=== PATIENT | female | born 1980 | race Caucasian/White ===

== ENCOUNTER → 2021-11-22 17:00 | Observation (INO) ==
[2021-11-22 16:01] LABS: Prothrombin Time 11.5 Seconds (9.4-12.1)
[2021-11-22 16:22] LABS: Basophils % 0.3 %; Eosinophils # 0.2 K/mcL (0.0-0.6); Eosinophils % 2.1 %; Hematocrit 34.9 % (35.3-44.9); Lymphocytes # 1.9 K/mcL (0.6-4.6); Lymphocytes % 19.6 %; Mean Corpuscular HGB Conc 34.4 g/dL (31.6-35.5); Mean Corpuscular Hemoglobin 31.5 pg (28.0-33.3); Mean Corpuscular Volume 91.6 fL (83.0-100.0); Mean Platelet Volume 10.2 fL (9.4-12.4); Monocytes # 0.6 K/mcL (0.0-1.3); Monocytes % 5.8 %; Neutrophils # 6.7 K/mcL (1.6-8.9); Platelet Count 190 K/mcL (140-400); Red Blood Count 3.81 M/mcL (3.82-4.97); Red Cell Distribution Width 13.5 % (11.5-14.5); Segmented Neutrophils % 71.2 %; White Blood Count 9.5 K/mcL (4.3-11.1)
[2021-11-22 16:33] LABS: Activated Partial Thrombo Time 26.9 Seconds (26.0-36.0)
== END | disposition home or self-care (01) ==
LOC: 1NENULAB
PROVIDERS: ADMIT Obstetrics & Gynecology; ATTEND Obstetrics & Gynecology

== ENCOUNTER 2022-02-01 10:15 | Inpatient (IN) ==
[~2022-02-01 10:15] MED LIST: CeFAZolin Syr 3,000MG/30 ML 3,000 MG/30 ML SYRINGE IVPB ONE; Famotidine 20 MG/2 ML VIAL IVP ONE; Metoclopramide 10 MG/2 ML VIAL IVP ONE; Oxytocin 30 UNIT/503 ML BAG IVC SCH; Ringers Solution, Lactated 1,000 ML IVC ONE; Ringers Solution, Lactated 1,000 ML IVC SCH
[2022-02-01] MEDS ORDERED: Promethazine 6.25 MG in Water for inj. (sterile) 20 ML IVPB PRN (10:42)
[2022-02-01] MEDS ORDERED: *HR* OxyCODONE Immed Rel 5 MG TABLET PO PRN ×2 (10:42→15:41)
[2022-02-01 11:39] LABS: Basophils # 0.1 K/mcL (0.0-0.2); Basophils % 0.4 %; Eosinophils # 0.1 K/mcL (0.0-0.6); Eosinophils % 1.1 %; Hematocrit 37.3 % (35.3-44.9); Hemoglobin 12.7 g/dL (11.5-15.4); Immature Granulocytes % 0.6 % (0-4); Lymphocytes # 2.1 K/mcL (0.6-4.6); Lymphocytes % 17.7 %; Mean Corpuscular Hemoglobin 31.4 pg (28.0-33.3); Mean Corpuscular Volume 92.1 fL (83.0-100.0); Mean Platelet Volume 11.2 fL (9.4-12.4); Monocytes # 0.9 K/mcL (0.0-1.3); Monocytes % 7.3 %; Neutrophils # 8.8 K/mcL (1.6-8.9); Platelet Count 205 K/mcL (140-400); Red Blood Count 4.05 M/mcL (3.82-4.97); Red Cell Distribution Width 13.9 % (11.5-14.5); Segmented Neutrophils % 72.9 %
[2022-02-01 11:47] LABS: Amphetamine Screen,Urine Negative ng/mL (Cutoff=1000); Barbiturate Screen,Urine Negative ng/mL (Cutoff=200); Benzodiazepines Screen,Urine Negative ng/mL (Cutoff=200); Cannabinoid Screen,Urine Negative ng/mL (Cutoff = 50); Cocaine Screen,Urine Negative ng/mL (Cutoff= 300); Opiate Screen,Urine Negative ng/mL (Cutoff=300); Phencyclidine Screen,Urine Negative ng/mL (Cutoff=25)
[2022-02-01] MEDS ORDERED: *HR* FentaNYL (PF) 100 MCG/2 ML VIAL ONE (12:05)
[2022-02-01] MEDS ORDERED: *HR* Morphine Sulfate/PF 10 MG/10 ML AMPUL ONE (12:05)
[2022-02-01] MEDS ORDERED: Ondansetron 4 MG/2 ML VIAL ONE (12:06)
[2022-02-01] MEDS ORDERED: Acetaminophen IV 1,000 MG/100 ML BAG IVPB ONE (12:12)
[2022-02-01] MEDS ORDERED: Ketorolac 30 MG/ML VIAL ONE (12:13)
[2022-02-01 12:21] LABS: Influenza A PCR Negative (Negative); Influenza B PCR Negative (Negative); Resp. Syncytial Virus PCR Negative (Negative); SARS-CoV-2 by PCR (In House) Negative (Negative)
[2022-02-01] MEDS ORDERED: Ringers Solution, Lactated 2,000 ML ONE (13:32)
[2022-02-01] MEDS ORDERED: Simethicone 80 MG TAB.CHEW PO PRN (15:41)
[2022-02-01] MEDS ORDERED: Ondansetron 4 MG/2 ML VIAL IVP PRN (15:41)
[2022-02-01] MEDS ORDERED: Metoclopramide 10 MG/2 ML VIAL IVP PRN (15:41)
[2022-02-01] MEDS: Ibuprofen 600 MG TABLET PO SCH (16:40)
[2022-02-01] MEDS: Acetaminophen 325 MG TABLET PO SCH (18:20)
[2022-02-01] MEDS: cephALEXin 500 MG CAPSULE PO SCH (18:20)
[2022-02-01] MEDS: metroNIDAZOLE 500 MG TABLET PO SCH (18:20)
[2022-02-01] MEDS: *HR* Enoxaparin 60 MG/0.6 ML SYRINGE SQ SCH (20:37)
[2022-02-01 23:12] VITALS: O2SAT 98
[2022-02-02] MEDS: Acetaminophen 325 MG TABLET PO SCH ×4 (00:27→11:54)
[2022-02-02] MEDS: Ibuprofen 600 MG TABLET PO SCH ×3 (00:27→06:33)
[2022-02-02] MEDS: cephALEXin 500 MG CAPSULE PO SCH (06:33)
[2022-02-02] MEDS: metroNIDAZOLE 500 MG TABLET PO SCH (06:33)
[2022-02-02 07:11] VITALS: BP 100/66; PULSE 86; TEMP 98.1
[2022-02-02] MEDS ORDERED: Prenatal Vit/FA 1 EACH TABLET PO SCH (09:00)
[2022-02-02] MEDS: *HR* Enoxaparin 60 MG/0.6 ML SYRINGE SQ SCH (09:06)
== END 2022-02-02 14:24 | disposition home or self-care (01) | DRG 540 ==
LOC: 1NENULAB → 1NENUOBS 16:08
PROVIDERS: ADMIT Obstetrics & Gynecology; ATTEND Obstetrics & Gynecology